=== PATIENT | female | born 1965 | race Caucasian/White ===

== ENCOUNTER 2018-03-20 12:48 | Inpatient (IN) | payer MEDICAID, OTHER ==
[~2018-03-20] VITALS: Ht 160 cm; Wt 87.9 kg
[~2018-03-20 12:48] MED LIST: IBUP-2071 PO; QUET100T PO
[2018-03-20 13:54] LABS: APPEARANCE,URINE CLEAR (CLEAR); BILIRUBIN,URINE NEGATIVE (NEGATIVE); GLUCOSE, URINE (UA) NEGATIVE (NEGATIVE); KETONES,URINE NEGATIVE (NEGATIVE); LEUKOCYTE ESTERASE ,URINE NEGATIVE (NEGATIVE); NITRATE,URINE NEGATIVE (NEGATIVE); OCCULT BLOOD,URINE NEGATIVE (NEGATIVE); PROTEIN,URINE NEGATIVE (NEGATIVE); UROBILINOGEN,URINE 0.2 mg/dL (<=1.0)
[2018-03-20 13:59] LABS: AMPHET/METH SCREEN,URINE NEGATIVE (NEGATIVE); BARBITURATE SCREEN, URINE NEGATIVE (NEGATIVE); BENZODIAZEPINES SCREEN,URINE NEGATIVE (NEGATIVE); CANNABINOID SCREEN,URINE NEGATIVE (NEGATIVE); COCAINE SCREEN,URINE NEGATIVE (NEGATIVE); METHADONE SCREEN, URINE NEGATIVE (NEGATIVE); OPIATE SCREEN,URINE NEGATIVE (NEGATIVE); PHENCYCLIDINE SCREEN,URINE NEGATIVE (NEGATIVE)
[2018-03-20] MEDS ORDERED: TRAZ-220 PO (14:11)
[2018-03-20] MEDS ORDERED: BUPR75 PO (14:11)
[2018-03-20 14:26] LABS: BASOPHILS % (AUTO) 1.1 % (0.0-2.0); EOSINOPHILS % (AUTO) 0.5 % (1.0-6.0); HEMATOCRIT 41.8 % (36-46); LYMPHOCYTES % (AUTO) 23.5 % (22.0-44.0); MEAN CORPUSCULAR HEMOGLOBIN 30.4 pg (26.0-34.0); MEAN CORPUSCULAR HGB CONC 35.8 G/dL (31.0-37.0); MEAN CORPUSCULAR VOLUME 85 fL (80-100); MONOCYTES # (AUTO) 0.4 K/uL (0.1-1.0); MONOCYTES % (AUTO) 4.7 % (2.0-9.0); NEUTROPHILS % (AUTO) 70.2 % (40.0-70.0); PLATELET COUNT (AUTO) 239 K/uL (150-450); RED BLOOD CELL COUNT(AUTO) 4.92 MIL/uL (4.00-5.20); RED CELL DISTRIBUTION WIDTH 12.6 % (11.5-14.5)
[2018-03-20 14:35] LABS: ANION GAP 8 mmol/L (8-16); CALCIUM, TOTAL 9.4 mg/dL (8.8-10.5); CARBON DIOXIDE 27 mmol/L (22-29); CHLORIDE 101 mmol/L (98-107); CREATININE 0.86 mg/dL (0.60-1.30); GLOMERULAR FILTR. RATE CALC > 60 mL/min (>60); GLUCOSE,RANDOM 107 mg/dL (70-110); POTASSIUM 3.5 mmol/L (3.5-5.1); SODIUM SERUM 136 mmol/L (136-145); UREA NITROGEN, BLOOD 10 mg/dL (7-18)
[2018-03-20 14:49] LABS: ALANINE AMINOTRANSFERASE 78 U/L (12-78); ALBUMIN 4.4 g/dL (3.4-5.0); ALKALINE PHOSPHATASE 125 U/L (46-116); ASPARTATE AMINOTRANSFERASE 38 U/L (15-37); BILIRUBIN,TOTAL 0.4 mg/dL (0.1-1.0); THYROID STIMULATING HORMONE 1.41 uIU/mL (0.36-3.74); TOTAL PROTEIN, SERUM 8.5 g/dL (6.4-8.2)
[2018-03-20] MEDS ORDERED: HALOPERIDOL 5 MG TABLET PO PRN (15:00)
[2018-03-20 18:25] VITALS: BP 141/84
[2018-03-20] MEDS ORDERED: LOPERAMIDE HCL 2 MG CAPSULE PO PRN (19:15)
[2018-03-20] MEDS ORDERED: CloNIDine HCL 0.1 MG TABLET PO PRN (19:15)
[2018-03-20] MEDS ORDERED: PETROLATUM,WHITE 71 GM JELLY TP PRN (19:15)
[2018-03-20] MEDS ORDERED: DOCUSATE SODIUM 100 MG CAPSULE PO PRN (19:15)
[2018-03-20] MEDS ORDERED: MAGNESIUM HYDROXIDE SUSPENSION 30 ML UDCUP PO PRN (19:15)
[2018-03-20] MEDS ORDERED: ACETAMINOPHEN 325 MG TABLET PO PRN (19:15)
[2018-03-20] MEDS ORDERED: MAG HYDROX/AL HYDROX/SIMETH ES 30 ML SUSPENSION UDCUP PO PRN (19:15)
[2018-03-20] MEDS: IBUPROFEN 400 MG TABLET PO PRN (19:24)
[2018-03-20] MEDS: ZOLPIDEM TARTRATE 10 MG TABLET PO PRN (20:53)
[2018-03-21 03:48] VITALS: BP 104/64
[2018-03-21 08:30] VITALS: BP 138/70
[2018-03-21] MEDS: LORazepam 2 MG TABLET PO PRN ×2 (08:31→21:57)
[2018-03-21] MEDS: IBUPROFEN 400 MG TABLET PO PRN (08:34)
[2018-03-21 08:37] LABS: BASOPHILS % (AUTO) 0.5 % (0.0-2.0); EOSINOPHILS % (AUTO) 1.6 % (1.0-6.0); HEMATOCRIT 41.5 % (36-46); HEMOGLOBIN 14.9 g/dL (12.0-16.0); LYMPHOCYTES # (AUTO) 1.9 K/uL (1.0-4.8); LYMPHOCYTES % (AUTO) 31.8 % (22.0-44.0); MEAN CORPUSCULAR HEMOGLOBIN 30.6 pg (26.0-34.0); MEAN CORPUSCULAR HGB CONC 35.9 G/dL (31.0-37.0); MEAN CORPUSCULAR VOLUME 85 fL (80-100); MONOCYTES # (AUTO) 0.4 K/uL (0.1-1.0); NEUTROPHILS # (AUTO) 3.5 K/uL (1.8-7.7); NEUTROPHILS % (AUTO) 60.1 % (40.0-70.0); PLATELET COUNT (AUTO) 231 K/uL (150-450); RED BLOOD CELL COUNT(AUTO) 4.86 MIL/uL (4.00-5.20); RED CELL DISTRIBUTION WIDTH 12.3 % (11.5-14.5)
[2018-03-21 08:48] VITALS: BP 142/72
[2018-03-21] MEDS: PARoxetine HCL 20 MG TABLET PO SCH (09:04)
[2018-03-21 09:12] LABS: ALANINE AMINOTRANSFERASE 71 U/L (12-78); ALBUMIN 4.1 g/dL (3.4-5.0); ALKALINE PHOSPHATASE 118 U/L (46-116); ANION GAP 9 mmol/L (8-16); ASPARTATE AMINOTRANSFERASE 30 U/L (15-37); BILIRUBIN,TOTAL 0.4 mg/dL (0.1-1.0); CALCIUM, TOTAL 9.1 mg/dL (8.8-10.5); CARBON DIOXIDE 27 mmol/L (22-29); CHLORIDE 101 mmol/L (98-107); CHOLESTEROL 215 mg/dL (131-200); CREATININE 0.86 mg/dL (0.60-1.30); GLOMERULAR FILTR. RATE CALC > 60 mL/min (>60); GLUCOSE,RANDOM 106 mg/dL (70-110); HDL CHOLESTEROL 54 mg/dL (40-60); LDL CHOL (CALC.) 138 mg/dL (0-130); POTASSIUM 3.6 mmol/L (3.5-5.1); SODIUM SERUM 137 mmol/L (136-145); THYROID STIMULATING HORMONE 2.53 uIU/mL (0.36-3.74); TOTAL PROTEIN, SERUM 8.1 g/dL (6.4-8.2); TRIGLYCERIDES 117 mg/dL (15-150); UREA NITROGEN, BLOOD 13 mg/dL (7-18)
[2018-03-21 16:29] VITALS: BP 126/77
[2018-03-21] MEDS: ZOLPIDEM TARTRATE 10 MG TABLET PO PRN (20:19)
[2018-03-22 08:24] VITALS: BP 126/87
[2018-03-22] MEDS: PARoxetine HCL 20 MG TABLET PO SCH (10:10)
[2018-03-22] MEDS: LORazepam 2 MG TABLET PO PRN ×2 (10:10→20:18)
[2018-03-22 16:17] VITALS: BP 139/68
[2018-03-22] MEDS: ZOLPIDEM TARTRATE 10 MG TABLET PO PRN (21:36)
[2018-03-23 00:46] VITALS: BP 120/81
[2018-03-23] MEDS: PARoxetine HCL 20 MG TABLET PO SCH (09:16)
[2018-03-23 09:23] VITALS: BP 121/73
[2018-03-23] MEDS ORDERED: PARO20TA24 PO (10:48)
== END 2018-03-23 13:20 | disposition home or self-care (01) | DRG 751 ==
LOC: EMS 12:49 → B2S 15:35
PROVIDERS: ADMIT Psychiatry & Neurology Child & Adolescent Psychiatry; ATTEND Psychiatry & Neurology Child & Adolescent Psychiatry
DX: F33.3 Major depressive disorder, recurrent, severe with psychotic symptoms (principal); Z91.14 Patient's other noncompliance with medication regimen; E78.5 Hyperlipidemia, unspecified; G89.29 Other chronic pain; F41.9 Anxiety disorder, unspecified; M54.9 Dorsalgia, unspecified
CPT/HCPCS: 83036; 84443; G0480

== ENCOUNTER 2018-03-26 10:13 | Emergency (ER) | payer MEDICAID, OTHER ==
[~2018-03-26] VITALS: Ht 160 cm; Wt 90.9 kg
[~2018-03-26 10:13] MED LIST changes: -IBUP-2071 PO; +PARO20TA24 PO; -QUET100T PO
[2018-03-26 10:31] VITALS: BP 154/84
[2018-03-26] MEDS ORDERED: QUET25TA PO (10:34)
[2018-03-26] MEDS ORDERED: CLOT15CR62 TP (10:34)
[2018-03-26] MEDS ORDERED: NAPR-58 PO (10:34)
[2018-03-26] MEDS ORDERED: METR1KIT TP (10:34)
[2018-03-26] MEDS ORDERED: MONT10TA21 PO (10:34)
[2018-03-26] MEDS ORDERED: GABA-531 PO (10:34)
[2018-03-26] MEDS ORDERED: TRAZ-220 PO (10:34)
[2018-03-26] MEDS ORDERED: BACL10TA PO (10:34)
== END 2018-03-26 12:42 | disposition left against medical advice (07) ==
LOC: EMS 10:14
DX: M54.5 Low back pain (principal); Z53.21 Procedure and treatment not carried out due to patient leaving prior to being seen by health care provider

== ENCOUNTER 2020-11-19 15:55 | Emergency (ER) | payer OTHER ==
[~2020-11-19] VITALS: Ht 160 cm; Wt 90.9 kg
[~2020-11-19 15:55] MED LIST changes: +BACL10TA PO; +CLOT15CR23 TP; +GABA-1181 PO; +METR1KIT TP; +MONT-35 PO; +NAPR-1025 PO; +PARO-38 PO; -PARO20TA24 PO; +QUET25TA PO; +TRAZ-257 PO
[2020-11-19 17:10] VITALS: BP 138/100
[2020-11-19 17:34] LABS: BASOPHILS % (AUTO) 0.5 % (0.0-2.0); EOSINOPHILS % (AUTO) 1.3 % (1.0-6.0); HEMATOCRIT 45.3 % (36-46); HEMOGLOBIN 15.1 g/dL (12.0-16.0); LYMPHOCYTES # (AUTO) 1.1 K/uL (1.0-4.8); LYMPHOCYTES % (AUTO) 16.6 % (22.0-44.0); MEAN CORPUSCULAR HEMOGLOBIN 30.2 pg (26.0-34.0); MEAN CORPUSCULAR HGB CONC 33.3 G/dL (31.0-37.0); MEAN CORPUSCULAR VOLUME 91 fL (80-100); MONOCYTES # (AUTO) 0.7 K/uL (0.1-1.0); MONOCYTES % (AUTO) 11.2 % (2.0-9.0); NEUTROPHILS # (AUTO) 4.6 K/uL (1.8-7.7); NEUTROPHILS % (AUTO) 70.4 % (40.0-70.0); PLATELET COUNT (AUTO) 222 K/uL (150-450); RED BLOOD CELL COUNT(AUTO) 5.01 MIL/uL (4.00-5.20); RED CELL DISTRIBUTION WIDTH 13.7 % (11.5-14.5)
[2020-11-19 17:43] LABS: ANION GAP 11 mmol/L (8-16); CALCIUM, TOTAL 9.1 mg/dL (8.8-10.5); CARBON DIOXIDE 23 mmol/L (22-29); CHLORIDE 101 mmol/L (98-107); CREATININE 0.76 mg/dL (0.60-1.30); GLOMERULAR FILTR. RATE CALC > 60 mL/min (>60); GLUCOSE,RANDOM 159 mg/dL (70-110); SODIUM SERUM 135 mmol/L (136-145); UREA NITROGEN, BLOOD 14 mg/dL (7-18)
[2020-11-19] MEDS ORDERED: OMEP20CA13 PO (17:45)
[2020-11-19] MEDS ORDERED: IBUP-2070 PO (17:45)
[2020-11-19] MEDS ORDERED: PRED5TAB2 PO (17:45)
[2020-11-19] MEDS ORDERED: LORazepam 1 MG TABLET PO ONE (17:45)
[2020-11-19] MEDS ORDERED: LORA10TA7 PO (17:45)
[2020-11-19] MEDS ORDERED: FLUT16H NASAL (17:45)
[2020-11-19] MEDS ORDERED: ARIP15TA27 PO (17:45)
[2020-11-19] MEDS ORDERED: TRIA15CR49 TP (17:45)
[2020-11-19] MEDS ORDERED: LOSA50TA37 PO (17:45)
[2020-11-19] MEDS ORDERED: NYST60PO TP (17:45)
[2020-11-19] MEDS ORDERED: QUET100T PO (17:45)
[2020-11-19 17:47] LABS: AMPHET/METH SCREEN,URINE NEGATIVE (NEGATIVE); BARBITURATE SCREEN, URINE NEGATIVE (NEGATIVE); BENZODIAZEPINES SCREEN,URINE NEGATIVE (NEGATIVE); CANNABINOID SCREEN,URINE NEGATIVE (NEGATIVE); COCAINE SCREEN,URINE NEGATIVE (NEGATIVE); METHADONE SCREEN, URINE NEGATIVE (NEGATIVE); OPIATE SCREEN,URINE NEGATIVE (NEGATIVE)
[2020-11-19 17:47] LABS: ALANINE AMINOTRANSFERASE 32 U/L (12-78); ALKALINE PHOSPHATASE 77 U/L (46-116); ASPARTATE AMINOTRANSFERASE < 5 U/L (15-37); BILIRUBIN,TOTAL 0.2 mg/dL (0.1-1.0); TOTAL PROTEIN, SERUM 7.7 g/dL (6.4-8.2)
[2020-11-19] MEDS ORDERED: MYCO500T5 PO (17:47)
[2020-11-19] MEDS ORDERED: BUPR-49 PO (17:47)
[2020-11-19] MEDS ORDERED: HYDR200T4 PO (17:47)
[2020-11-19] MEDS ORDERED: DIPH-1080 PO (17:47)
[2020-11-19] MEDS ORDERED: KETO5DRO6 OU (17:47)
[2020-11-19 17:48] LABS: PHENCYCLIDINE SCREEN,URINE NEGATIVE (NEGATIVE)
== END 2020-11-19 19:07 | disposition home or self-care (01) ==
LOC: EMS 15:55
DX: F41.9 Anxiety disorder, unspecified (principal); E78.00 Pure hypercholesterolemia, unspecified; I10 Essential (primary) hypertension; Z91.19 Patient's noncompliance with other medical treatment and regimen
CPT/HCPCS: 36415; 80053; 80307; 85025; 99283; G0480

== ENCOUNTER 2020-12-08 21:28 | Emergency (ER) | payer OTHER ==
[~2020-12-08] VITALS: Ht 160 cm; Wt 86.4 kg
[~2020-12-08 21:28] MED LIST changes: +ARIP15TA27 PO; -BACL10TA PO; +BUPR-49 PO; +DIPH-1080 PO; +FLUT16H NASAL; +HYDR200T4 PO; +IBUP-2070 PO; +KETO5DRO6 OU; +LORA10TA7 PO; +LOSA50TA37 PO; -METR1KIT TP; +MYCO500T5 PO; -NAPR-1025 PO; +NYST60PO TP; +OMEP20CA13 PO; -PARO-38 PO; +PRED5TAB2 PO; +QUET100T PO; -QUET25TA PO; +TRIA15CR49 TP
[2020-12-08 22:28] LABS: BASOPHILS % (AUTO) 0.7 % (0.0-2.0); EOSINOPHILS % (AUTO) 1.5 % (1.0-6.0); HEMATOCRIT 45.4 % (36-46); HEMOGLOBIN 15.3 g/dL (12.0-16.0); LYMPHOCYTES # (AUTO) 1.1 K/uL (1.0-4.8); LYMPHOCYTES % (AUTO) 17.5 % (22.0-44.0); MEAN CORPUSCULAR HEMOGLOBIN 30.2 pg (26.0-34.0); MEAN CORPUSCULAR HGB CONC 33.6 G/dL (31.0-37.0); MEAN CORPUSCULAR VOLUME 90 fL (80-100); MONOCYTES # (AUTO) 0.7 K/uL (0.1-1.0); MONOCYTES % (AUTO) 11.3 % (2.0-9.0); NEUTROPHILS # (AUTO) 4.5 K/uL (1.8-7.7); PLATELET COUNT (AUTO) 242 K/uL (150-450); RED BLOOD CELL COUNT(AUTO) 5.05 MIL/uL (4.00-5.20)
[2020-12-08 22:35] LABS: COVID AG,FIA SOURCE NASOPHARYNGEAL
[2020-12-08 22:39] LABS: ANION GAP 10 mmol/L (8-16); CALCIUM, TOTAL 9.2 mg/dL (8.8-10.5); CARBON DIOXIDE 24 mmol/L (22-29); CHLORIDE 103 mmol/L (98-107); CREATININE 0.66 mg/dL (0.60-1.30); GLOMERULAR FILTR. RATE CALC > 60 mL/min (>60); GLUCOSE,RANDOM 140 mg/dL (70-110); POTASSIUM 3.9 mmol/L (3.5-5.1); SODIUM SERUM 137 mmol/L (136-145); UREA NITROGEN, BLOOD 13 mg/dL (7-18)
[2020-12-08 22:44] LABS: ALANINE AMINOTRANSFERASE 34 U/L (12-78); ALBUMIN 4.2 g/dL (3.4-5.0); ALKALINE PHOSPHATASE 73 U/L (46-116); ASPARTATE AMINOTRANSFERASE 16 U/L (15-37); BILIRUBIN,TOTAL 0.4 mg/dL (0.1-1.0); TOTAL PROTEIN, SERUM 7.7 g/dL (6.4-8.2)
[2020-12-08 23:27] LABS: AMPHET/METH SCREEN,URINE NEGATIVE (NEGATIVE); BARBITURATE SCREEN, URINE NEGATIVE (NEGATIVE); BENZODIAZEPINES SCREEN,URINE NEGATIVE (NEGATIVE); CANNABINOID SCREEN,URINE NEGATIVE (NEGATIVE); COCAINE SCREEN,URINE NEGATIVE (NEGATIVE); METHADONE SCREEN, URINE NEGATIVE (NEGATIVE); OPIATE SCREEN,URINE NEGATIVE (NEGATIVE)
[2020-12-08 23:28] LABS: PHENCYCLIDINE SCREEN,URINE NEGATIVE (NEGATIVE)
[2020-12-09 01:20] VITALS: BP 146/79
== END 2020-12-09 01:30 | disposition home or self-care (01) ==
LOC: EMS 21:39
DX: F41.9 Anxiety disorder, unspecified (principal); I10 Essential (primary) hypertension; F32.9 Major depressive disorder, single episode, unspecified; E78.00 Pure hypercholesterolemia, unspecified; Z79.899 Other long term (current) drug therapy; Z20.822 Contact with and (suspected) exposure to COVID-19
CPT/HCPCS: 36415; 80053; 80307; 85025; 87426; 99283; G0480

== ENCOUNTER 2022-01-18 15:43 | Inpatient (IN) | payer MEDICAID, OTHER ==
[~2022-01-18] VITALS: Ht 162.6 cm; Wt 78.6 kg
[~2022-01-18 15:43] MED LIST changes: -BUPR-49 PO; -CLOT15CR23 TP; -GABA-1181 PO; -IBUP-2070 PO; -KETO5DRO6 OU; -LORA10TA7 PO; +LOSA-382 PO; -LOSA50TA37 PO; -NYST60PO TP; -OMEP20CA13 PO; -TRIA15CR49 TP
[2022-01-18] MEDS ORDERED: VANCOMYCIN 1GM/WATER(PEG/NADA) 200 ML IV ONE (17:15)
[2022-01-18 17:32] LABS: BASOPHILS % (AUTO) 0.3 % (0.0-2.0); EOSINOPHILS % (AUTO) 0.1 % (1.0-6.0); HEMATOCRIT 45.5 % (36-46); HEMOGLOBIN 15.2 g/dL (12.0-16.0); LYMPHOCYTES # (AUTO) 0.8 K/uL (1.0-4.8); LYMPHOCYTES % (AUTO) 14.5 % (22.0-44.0); MEAN CORPUSCULAR HGB CONC 33.4 G/dL (31.0-37.0); MEAN CORPUSCULAR VOLUME 90 fL (80-100); MONOCYTES # (AUTO) 0.5 K/uL (0.1-1.0); MONOCYTES % (AUTO) 9.3 % (2.0-9.0); NEUTROPHILS # (AUTO) 4.2 K/uL (1.8-7.7); NEUTROPHILS % (AUTO) 75.8 % (40.0-70.0); PLATELET COUNT (AUTO) 209 K/uL (150-450); RED BLOOD CELL COUNT(AUTO) 5.06 MIL/uL (4.00-5.20); RED CELL DISTRIBUTION WIDTH 13.7 % (11.5-14.5)
[2022-01-18 17:39] LABS: ANION GAP 9 mmol/L (8-16); CARBON DIOXIDE 27 mmol/L (22-29); CHLORIDE 104 mmol/L (98-107); CREATININE 0.78 mg/dL (0.60-1.30); GLUCOSE,RANDOM 98 mg/dL (70-110); POTASSIUM 3.5 mmol/L (3.5-5.1); SODIUM SERUM 140 mmol/L (136-145); UREA NITROGEN, BLOOD 13 mg/dL (7-18)
[2022-01-18 17:40] LABS: GLOMERULAR FILTR. RATE CALC > 60 mL/min (>60)
[2022-01-18] MEDS ORDERED: ACETAMINOPHEN 325 MG TABLET PO PRN ×2 (19:00→22:00)
[2022-01-18] MEDS ORDERED: ONDANSETRON HCL 4 MG/2 ML VIAL IVP PRN ×2 (19:00→22:00)
[2022-01-18 19:02] LABS: COVID AG,FIA SOURCE NASOPHARYNGEAL
[2022-01-18] MEDS ORDERED: HYDROCODONE/ACETAMINOPHEN 5-325 MG TABLET PO PRN (22:00)
[2022-01-18] MEDS ORDERED: MORPHINE SULFATE 2 MG/ML SYRINGE IVP PRN (22:00)
[2022-01-18] MEDS ORDERED: BISACODYL 10 MG RECTAL RECTAL SUPPOSITORY PR PRN (22:00)
[2022-01-18] MEDS ORDERED: MAGNESIUM HYDROXIDE SUSPENSION 30 ML UDCUP PO PRN (22:00)
[2022-01-18] MEDS ORDERED: *CLINICAL-LEVOFLOXACIN IVPB DOSING CLINICAL ONE (22:00)
[2022-01-18] MEDS: LEVOFLOXACIN 750 MG/D5% WATER 150 ML IV SCH (22:42)
[2022-01-18] MEDS: HEPARIN SODIUM,PORCINE 5,000 UNITS/ML VIAL SQ SCH (23:18)
[2022-01-19] MEDS: HEPARIN SODIUM,PORCINE 5,000 UNITS/ML VIAL SQ SCH ×3 (08:07→23:31)
[2022-01-19] MEDS: DOCUSATE SODIUM 100 MG CAPSULE PO SCH ×2 (08:37→20:19)
[2022-01-19] MEDS: PANTOPRAZOLE SODIUM 40 MG DR TABLET PO SCH (08:37)
[2022-01-19] MEDS ORDERED: TRIAMCINOLONE 0.1% 15 GM CREAM TP SCH (12:45)
[2022-01-19 13:07] VITALS: BP 144/86
[2022-01-19] MEDS ORDERED: ESCI-8 PO (13:47)
[2022-01-19] MEDS ORDERED: LORA10TA7 PO (13:47)
[2022-01-19] MEDS ORDERED: LOSA-382 PO (13:47)
[2022-01-19] MEDS ORDERED: BENZ1TAB96 PO (13:47)
[2022-01-19] MEDS ORDERED: MYCO250C27 PO (13:47)
[2022-01-19] MEDS ORDERED: BENZ-70 PO (13:47)
[2022-01-19] MEDS ORDERED: OLAN10TA74 PO (13:47)
[2022-01-19] MEDS ORDERED: MIRT30 PO (13:47)
[2022-01-19] MEDS ORDERED: PRED-549 PO (13:47)
[2022-01-19] MEDS ORDERED: SULF-301 PO (13:47)
[2022-01-19] MEDS ORDERED: BUSP15 PO (13:47)
[2022-01-19] MEDS ORDERED: HYDR12.54 PO (13:47)
[2022-01-19] MEDS ORDERED: FLUT16H NASAL (13:47)
[2022-01-19 15:30] VITALS: BP 136/88
[2022-01-19] MEDS: PredniSONE 20 MG TABLET PO SCH (15:44)
[2022-01-19] MEDS: TRIAMCINOLONE 0.1% 80 GM CREAM TP SCH (15:45)
[2022-01-19] MEDS: ZOLPIDEM TARTRATE 5 MG TABLET PO PRN (20:19)
[2022-01-19 20:51] VITALS: BP 121/68
[2022-01-19] MEDS ORDERED: SODIUM CHLORIDE 0.9% 250 ML IV ONE (23:26)
[2022-01-19] MEDS: LEVOFLOXACIN 750 MG/D5% WATER 150 ML IV SCH (23:31)
[2022-01-20 04:33] VITALS: BP 122/61
[2022-01-20 06:33] LABS: BASOPHILS % (AUTO) 0.1 % (0.0-2.0); EOSINOPHILS % (AUTO) 0.2 % (1.0-6.0); HEMATOCRIT 39.9 % (36-46); HEMOGLOBIN 13.4 g/dL (12.0-16.0); LYMPHOCYTES # (AUTO) 0.8 K/uL (1.0-4.8); LYMPHOCYTES % (AUTO) 17.6 % (22.0-44.0); MEAN CORPUSCULAR HEMOGLOBIN 29.8 pg (26.0-34.0); MEAN CORPUSCULAR HGB CONC 33.4 G/dL (31.0-37.0); MEAN CORPUSCULAR VOLUME 89 fL (80-100); MONOCYTES # (AUTO) 0.4 K/uL (0.1-1.0); NEUTROPHILS # (AUTO) 3.1 K/uL (1.8-7.7); NEUTROPHILS % (AUTO) 72.1 % (40.0-70.0); PLATELET COUNT (AUTO) 209 K/uL (150-450); RED BLOOD CELL COUNT(AUTO) 4.48 MIL/uL (4.00-5.20); RED CELL DISTRIBUTION WIDTH 13.6 % (11.5-14.5)
[2022-01-20 06:38] LABS: ANION GAP 7 mmol/L (8-16); CALCIUM, TOTAL 8.7 mg/dL (8.8-10.5); CARBON DIOXIDE 26 mmol/L (22-29); CHLORIDE 105 mmol/L (98-107); CREATININE 0.69 mg/dL (0.60-1.30); GLUCOSE,RANDOM 109 mg/dL (70-110); POTASSIUM 3.7 mmol/L (3.5-5.1); SODIUM SERUM 138 mmol/L (136-145); UREA NITROGEN, BLOOD 10 mg/dL (7-18)
[2022-01-20 06:45] LABS: GLOMERULAR FILTR. RATE CALC > 60 mL/min (>60)
[2022-01-20 07:59] VITALS: BP 131/76
[2022-01-20] MEDS: PredniSONE 20 MG TABLET PO SCH (08:37)
[2022-01-20] MEDS: DOCUSATE SODIUM 100 MG CAPSULE PO SCH ×2 (08:37→20:34)
[2022-01-20] MEDS: PANTOPRAZOLE SODIUM 40 MG DR TABLET PO SCH (08:37)
[2022-01-20] MEDS: TRIAMCINOLONE 0.1% 80 GM CREAM TP SCH (08:38)
[2022-01-20] MEDS: HEPARIN SODIUM,PORCINE 5,000 UNITS/ML VIAL SQ SCH ×3 (08:38→23:34)
[2022-01-20 14:51] VITALS: BP 141/98
[2022-01-20] MEDS ORDERED: BusPIRone HCL 15 MG TABLET PO PRN (15:00)
[2022-01-20] MEDS ORDERED: BENZTROPINE MESYLATE 1 MG TABLET PO SCH (18:00)
[2022-01-20 20:20] VITALS: BP 122/71
[2022-01-20] MEDS: MYCOPHENOLATE MOFETIL 250 MG CAPSULE PO SCH (20:34)
[2022-01-20] MEDS: PredniSONE 5 MG TABLET PO SCH (20:35)
[2022-01-20] MEDS: LEVOFLOXACIN 750 MG/D5% WATER 150 ML IV SCH (22:06)
[2022-01-20] MEDS: ZOLPIDEM TARTRATE 5 MG TABLET PO PRN (22:07)
[2022-01-21 06:07] VITALS: BP 139/68
[2022-01-21 06:40] LABS: BASOPHILS % (AUTO) 0.1 % (0.0-2.0); EOSINOPHILS % (AUTO) 0.1 % (1.0-6.0); HEMATOCRIT 38.3 % (36-46); HEMOGLOBIN 12.9 g/dL (12.0-16.0); LYMPHOCYTES # (AUTO) 0.9 K/uL (1.0-4.8); MEAN CORPUSCULAR HEMOGLOBIN 30.1 pg (26.0-34.0); MEAN CORPUSCULAR HGB CONC 33.8 G/dL (31.0-37.0); MEAN CORPUSCULAR VOLUME 89 fL (80-100); MONOCYTES # (AUTO) 0.6 K/uL (0.1-1.0); MONOCYTES % (AUTO) 11.5 % (2.0-9.0); NEUTROPHILS # (AUTO) 3.4 K/uL (1.8-7.7); NEUTROPHILS % (AUTO) 70.3 % (40.0-70.0); PLATELET COUNT (AUTO) 185 K/uL (150-450); RED BLOOD CELL COUNT(AUTO) 4.31 MIL/uL (4.00-5.20); RED CELL DISTRIBUTION WIDTH 13.7 % (11.5-14.5)
[2022-01-21 06:55] LABS: ANION GAP 7 mmol/L (8-16); CALCIUM, TOTAL 8.9 mg/dL (8.8-10.5); CARBON DIOXIDE 27 mmol/L (22-29); CHLORIDE 107 mmol/L (98-107); CREATININE 0.69 mg/dL (0.60-1.30); GLUCOSE,RANDOM 136 mg/dL (70-110); SODIUM SERUM 141 mmol/L (136-145); UREA NITROGEN, BLOOD 13 mg/dL (7-18)
[2022-01-21 06:58] LABS: GLOMERULAR FILTR. RATE CALC > 60 mL/min (>60)
[2022-01-21 08:04] VITALS: BP 140/72
[2022-01-21] MEDS: MYCOPHENOLATE MOFETIL 250 MG CAPSULE PO SCH (08:41)
[2022-01-21] MEDS: DOCUSATE SODIUM 100 MG CAPSULE PO SCH (08:41)
[2022-01-21] MEDS: PredniSONE 5 MG TABLET PO SCH (08:42)
[2022-01-21] MEDS: PANTOPRAZOLE SODIUM 40 MG DR TABLET PO SCH (08:44)
[2022-01-21] MEDS: HEPARIN SODIUM,PORCINE 5,000 UNITS/ML VIAL SQ SCH (08:49)
[2022-01-21] MEDS ORDERED: FLUTICASONE PROPIONATE 50 MCG/SPRAY 16 GM NASAL SPRAY NASAL SCH (09:00)
[2022-01-21] MEDS ORDERED: LOSARTAN POTASSIUM 50 MG TABLET PO SCH (09:00)
[2022-01-21] MEDS ORDERED: ESCITALOPRAM OXALATE 10 MG TABLET PO SCH (09:00)
[2022-01-21] MEDS ORDERED: TRIA15CR49 TP (10:41)
[2022-01-21] MEDS ORDERED: LEVO750T68 PO (10:41)
== END 2022-01-21 13:50 | disposition home or self-care (01) | DRG 383 ==
LOC: EMS 15:43 → 6S 01-19 11:50
PROVIDERS: ADMIT Internal Medicine; ATTEND Internal Medicine
DX: L03.116 Cellulitis of left lower limb (principal); F32.3 Major depressive disorder, single episode, severe with psychotic features; M33.13 Other dermatomyositis without myopathy; M32.9 Systemic lupus erythematosus, unspecified; E78.00 Pure hypercholesterolemia, unspecified; L03.115 Cellulitis of right lower limb; I10 Essential (primary) hypertension; J45.909 Unspecified asthma, uncomplicated; Z79.899 Other long term (current) drug therapy; Z20.822 Contact with and (suspected) exposure to COVID-19
CPT/HCPCS: 80048; 85025; 99285; J1644; J1956; J7050; J7517; Q9967